=== PATIENT | female | born 2000 | race Caucasian/White ===

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

== ENCOUNTER 2020-01-15 18:13 | Emergency (ER) | payer MEDICAID ==
[~2020-01-15] VITALS: Ht 180.3 cm; Wt 122.7 kg
[2020-01-15] MEDS ORDERED: normal saline 1000ML IV soln IVB STA (18:32)
[2020-01-15] MEDS ORDERED: methylPREDNISolone sod succ 125mg/2ml vial IV ONE (18:35)
[2020-01-15] MEDS ORDERED: diphenhydrAMINE 50 mg/ml inj IV ONE (18:35)
[2020-01-15] MEDS ORDERED: famotidine/PF 10 mg/ml inj IV ONE (18:35)
[2020-01-15] MEDS ORDERED: predniSONE 20 mg tablet PO STA (18:37)
[2020-01-15] MEDS ORDERED: DIPH25CA83 PO (18:52)
[2020-01-15] MEDS ORDERED: diphenhydrAMINE 25mg capsule PO ONE (18:55)
[2020-01-15] MEDS ORDERED: famotidine 20mg tablet PO ONE (18:55)
[2020-01-15 19:12] VITALS: BP 138/73
== END 2020-01-15 19:14 | disposition home or self-care (01) ==
LOC: ER 18:15
DX: T78.40XA Allergy, unspecified, initial encounter (principal); R07.89 Other chest pain; I10 Essential (primary) hypertension; F32.9 Major depressive disorder, single episode, unspecified; Z88.1 Allergy status to other antibiotic agents; Z91.018 Allergy to other foods; Z79.899 Other long term (current) drug therapy; X58.XXXA Exposure to other specified factors, initial encounter
CPT/HCPCS: 99284; J7512; Q0163

== ENCOUNTER 2020-02-26 18:49 | Emergency (ER) | payer MEDICAID ==
[~2020-02-26] VITALS: Ht 180.3 cm; Wt 127.3 kg
[~2020-02-26 18:49] MED LIST changes: +DIPH25CA83 PO
--- NOTE | 2020-02-26 20:27 | NUR ---
PATIENT IS ALLERGIC TO WALNUTS AND PECANS, TOOK 25MG OF BENADRYL AT APROX 1800
[2020-02-26] MEDS ORDERED: triamcinolone acetonide 40mg/ml inj IM ONE (21:00)
[2020-02-26 22:16] VITALS: BP 129/83
== END 2020-02-26 22:17 | disposition home or self-care (01) ==
LOC: ER 18:50
DX: T78.49XA Other allergy, initial encounter (principal); T45.0X5A Adverse effect of antiallergic and antiemetic drugs, initial encounter; R11.10 Vomiting, unspecified; R07.89 Other chest pain; R10.84 Generalized abdominal pain; I10 Essential (primary) hypertension; F32.9 Major depressive disorder, single episode, unspecified; Z88.1 Allergy status to other antibiotic agents; Z91.018 Allergy to other foods; Z79.899 Other long term (current) drug therapy; X58.XXXA Exposure to other specified factors, initial encounter; Y92.89 Other specified places as the place of occurrence of the external cause
CPT/HCPCS: 96372; 99283; J3301

== ENCOUNTER 2020-03-10 14:19 | Emergency (ER) | payer MEDICAID ==
[~2020-03-10] VITALS: Ht 180.3 cm; Wt 127.3 kg
[2020-03-10 14:23] VITALS: BP 126/69
[2020-03-10 15:36] LABS: URINE HCG NEGATIVE (NEG)
[2020-03-10 15:48] LABS: CLARITY,URINE CLEAR (Clear); COLOR,URINE YELLOW (Yellow); GLUCOSE, URINE NEGATIVE (Neg); KETONES,URINE NEGATIVE (Neg); LEUKOCYTE ESTERASE ,URINE NEGATIVE (Neg); NITRITES, URINE NEGATIVE (Neg); OCCULT BLOOD,URINE SMALL (Neg); PROTEIN,URINE NEGATIVE (Neg); UA COLLECTION TYPE CLN CATCH MIDSTREAM; UROBILINOGEN,URINE 0.2 E.U/dL (0.2-1.0)
[2020-03-10 15:55] LABS: BACTERIA,URINE FEW /HPF (Neg); MUCUS STRANDS NONE SEEN /LPF (Neg); RBC,URINE 0-2 /HPF (0-2); SQUAMOUS EPITHELIAL CELL,UR FEW /LPF (FEW); WBC,URINE 0-4 /HPF (0-4)
== END 2020-03-10 16:32 | disposition home or self-care (01) ==
LOC: ER 14:22
DX: R19.7 Diarrhea, unspecified (principal); R10.13 Epigastric pain; E86.0 Dehydration; R30.9 Painful micturition, unspecified; I10 Essential (primary) hypertension; F32.9 Major depressive disorder, single episode, unspecified; Z88.0 Allergy status to penicillin; Z91.018 Allergy to other foods; Z79.899 Other long term (current) drug therapy
CPT/HCPCS: 81001; 81025; 99283

== ENCOUNTER 2020-04-15 12:48 | Emergency (ER) | payer MEDICAID ==
[~2020-04-15] VITALS: Ht 180.3 cm; Wt 126.7 kg
[2020-04-15 12:52] VITALS: BP 127/83
[2020-04-15] MEDS ORDERED: CYCL-1 PO (14:08)
[2020-04-15] MEDS ORDERED: IBUP-1984 PO (14:08)
[2020-04-15] MEDS ORDERED: cyclobenzaprine 10mg tablet PO ONE (14:10)
[2020-04-15] MEDS ORDERED: ketorolac tromethamine 15mg/ml inj. IM ONE (14:10)
== END 2020-04-15 14:51 | disposition home or self-care (01) ==
LOC: ER 12:48
DX: M54.5 Low back pain (principal); G89.29 Other chronic pain; I10 Essential (primary) hypertension; F32.9 Major depressive disorder, single episode, unspecified; Z88.1 Allergy status to other antibiotic agents; Z91.018 Allergy to other foods; Z79.899 Other long term (current) drug therapy
CPT/HCPCS: 96372; 99283; J1885